=== PATIENT | male | born 1995 | race Caucasian/White ===

== ENCOUNTER 2023-05-09 17:25 | Emergency (ER) | payer MEDICAID ==
[~2023-05-09] VITALS: Ht 177.8 cm; Wt 84.9 kg
[2023-05-09 17:29] VITALS: BP 135/93; PULSE 115; RESP 16; TEMP 98; O2SAT 98
== END 2023-05-09 17:42 | disposition home or self-care (01) ==
LOC: ER 17:27
DX: S39.012A Strain of muscle, fascia and tendon of lower back, initial encounter (principal); X50.1XXA Overexertion from prolonged static or awkward postures, initial encounter; Y93.89 Activity, other specified; Y92.89 Other specified places as the place of occurrence of the external cause; Y99.8 Other external cause status
CPT/HCPCS: 29540; 99283; L1930